=== PATIENT | male | born 1990 | race Caucasian/White ===

== ENCOUNTER 2017-05-21 17:12 | Emergency (ER) | payer OTHER ==
[~2017-05-21] VITALS: Ht 188 cm; Wt 86.2 kg
[~2017-05-21 17:12] MED LIST: IBUPROFEN800 MG PO; NORCO 5-325 TA1 EACH PO; ULTRAM50 MG PO
[2017-05-21] MEDS ORDERED: CITALOPRAM HBR40 MG PO (17:36)
== END 2017-05-21 20:40 | disposition home or self-care (01) ==
LOC: ED 17:12
DX: K52.9 Noninfective gastroenteritis and colitis, unspecified (principal); F17.200 Nicotine dependence, unspecified, uncomplicated; Z79.899 Other long term (current) drug therapy
CPT/HCPCS: 80053; 81001; 83690; 85025; 96361; 96374; 96375; 96376; 99283; J2270; J2405; J7030

== ENCOUNTER 2023-03-21 15:32 | Emergency (ER) | payer BC ==
[~2023-03-21] VITALS: Ht 188 cm; Wt 94.8 kg
[~2023-03-21 15:32] MED LIST changes: +CIPROFLOXACIN500 MG PO; +CITALOPRAM HBR40 MG PO; +METRONIDAZOLE500 MG PO
--- OUTSIDE RECORDS SUMMARY | 2023-03-21 15:34 | XMS ---
PreManage Notification: [employer] Senior Java Developer Events No recent Security Events currently on file CRITERIA MET - [facility] - 2 Visits in 30 Days CARE PROVIDERS CRISTHIAN MIRANDA Current PHONE: Unknown SHANNEN HOFFMANN Folder Machine Current PHONE: [phone] Dion has no Care Guidelines for this patient. Evelyn VISIT COUNT (12 MO.) 2 [facility] TOTAL 2 NOTE: Visits indicate total known visits. ED/UCC VISIT TRACKING (12 MO.) 03/21/2023 15:32 [facility] [place] TYPE: Emergency COMPLAINT: - FLANK PAIN 03/18/2023 11:57 [facility] [place] TYPE: Emergency COMPLAINT: - ABD PAIN DIAGNOSES: - Diverticulitis of large intestine without perforation or abscess without bleeding - Lower abdominal pain, unspecified - Nicotine dependence, unspecified, uncomplicated - Other long-term (current) drug therapy INPATIENT VISIT TRACKING (12 MO.) No inpatient visits to display in this time frame [email or web address]
[2023-03-21] MEDS ORDERED: TRAMADOL HCL50 MG PO (17:30)
[2023-03-21] MEDS ORDERED: HYDROCODON-ACE1 EA11 PO (19:17)
[2023-03-21 19:46] VITALS: BP 117/70
== END 2023-03-21 19:46 | disposition home or self-care (01) ==
LOC: ED 15:32
DX: K57.92 Diverticulitis of intestine, part unspecified, without perforation or abscess without bleeding (principal); F17.200 Nicotine dependence, unspecified, uncomplicated; Z79.899 Other long term (current) drug therapy
CPT/HCPCS: 36415; 76775; 80053; 81003; 83690; 85025; 96374; 96375; 99284-25; J1885; J2405; J7030

== ENCOUNTER 2025-02-12 17:16 | Emergency (ER) | payer BC ==
[~2025-02-12] VITALS: Ht 188 cm; Wt 88.1 kg
[~2025-02-12 17:16] MED LIST changes: +HYDROCODON-ACE1 EA11 PO; +TRAMADOL HCL50 MG PO
[2025-02-12] MEDS ORDERED: CEPHALEXIN500 M1 PO (20:21)
[2025-02-12] MEDS ORDERED: TRAMADOL HCL 50 MG HOME.PACK PO ONE (20:30)
[2025-02-12] MEDS ORDERED: CEPHALEXIN MONOHYDRATE 500 MG HOME.PACK PO ONE (20:30)
[2025-02-12 20:40] VITALS: BP 151/94
== END 2025-02-12 20:40 | disposition home or self-care (01) ==
LOC: ED 17:16
DX: S61.512A Laceration without foreign body of left wrist, initial encounter (principal); F17.200 Nicotine dependence, unspecified, uncomplicated; W27.8XXA Contact with other nonpowered hand tool, initial encounter
CPT/HCPCS: 12001; 73090; 99283; A9270